=== PATIENT | female | born 1950 | race Caucasian/White ===

== ENCOUNTER 2018-11-29 06:30 | Inpatient (IN) ==
[~2018-11-29 06:30] MED LIST: ceFAZolin 1,000 MG, Sodium Chloride IRRigation 1,000 ML IR ONE
[2018-11-29] MEDS ORDERED: Albuterol 2.5 MG/3 ML NEBULIZER IH PRN (07:09)
[2018-11-29] MEDS ORDERED: CeFAZolin Syr 2,000MG/20 ML 2,000 MG/20 ML SYRINGE IVPB ONE (07:09)
[2018-11-29] MEDS ORDERED: Ringers Solution, Lactated 1,000 ML IVC SCH (07:15)
[2018-11-29] MEDS ORDERED: *HR* Rocuronium Bromide 50 MG/5 ML VIAL ONE (07:22)
[2018-11-29] MEDS ORDERED: Lidocaine -MPF 2% 2 ML VIAL ONE ×2 (07:22→08:12)
[2018-11-29] MEDS ORDERED: *HR* Propofol 200 MG/20 ML VIAL IVP ONE (07:23)
[2018-11-29] MEDS ORDERED: *HR* FentaNYL (PF) 100 MCG/2 ML VIAL ONE (07:25)
[2018-11-29] MEDS ORDERED: *HR* Midazolam HCl 2 MG/2 ML VIAL ONE (07:25)
[2018-11-29] MEDS ORDERED: *HR* Phenylephrine 10 MG/ML VIAL ONE (07:27)
[2018-11-29] MEDS ORDERED: *HR* Labetalol 20 MG/4 ML SYRINGE IVP PRN ×2 (07:29→13:02)
[2018-11-29] MEDS ORDERED: Morphine Sulfate 2 MG/ML SYRINGE IVP PRN (07:29)
[2018-11-29] MEDS ORDERED: *HR* OxyCODONE Immed Rel 5 MG TABLET PO PRN (07:29)
[2018-11-29] MEDS ORDERED: *HR* Midazolam HCl 2 MG/2 ML VIAL IVP PRN (07:29)
[2018-11-29] MEDS ORDERED: traMADol 50 MG TABLET PO PRN ×2 (07:29→13:02)
[2018-11-29] MEDS ORDERED: *HR* Remifentanil 2 MG VIAL IVP ONE (07:29)
[2018-11-29] MEDS ORDERED: Ondansetron 4 MG/2 ML VIAL IVP ONE (07:29)
[2018-11-29] MEDS ORDERED: Heparin 1,000 UNITS/500 mL 0 ML ONE (07:32)
[2018-11-29] MEDS ORDERED: Protamine Sulfate 50 MG/5 ML VIAL IVP ONE (07:51)
[2018-11-29] MEDS ORDERED: Heparin 1,000 UNITS/500 mL 1,000 ML ONE (07:51)
[2018-11-29] MEDS ORDERED: *HR* PHENYLEPHRINE 1,000 MCG/10 ML SYRINGE IVP ONE (08:32)
[2018-11-29] MEDS ORDERED: *HR* Heparin 5,000 UNIT/ML VIAL ONE (09:01)
[2018-11-29] MEDS ORDERED: NiCARdipine 2.5 MG/10 ML Syringe IVPB ONE (10:29)
[2018-11-29] MEDS ORDERED: Naloxone 0.4 MG/ML INJ IVP PRN (13:02)
[2018-11-29] MEDS ORDERED: 0.9 % Sodium Chloride 500 ML IV ONE (13:22)
[2018-11-29] MEDS ORDERED: Ondansetron 4 MG/2 ML VIAL ONE (13:41)
[2018-11-29] MEDS ORDERED: Dexamethasone 4 MG/ML VIAL ONE (13:41)
[2018-11-29] MEDS: 0.9 % Sodium Chloride 1,000 ML IVC SCH (13:54)
[2018-11-29] MEDS: Gabapentin 300 MG CAPSULE PO SCH ×2 (15:23→20:48)
[2018-11-29] MEDS: *HR* Metformin 500 MG TABLET PO SCH ×2 (15:23→20:48)
[2018-11-29] MEDS: Spironolactone 25 MG TABLET PO SCH (20:37)
[2018-11-29] MEDS: Ibuprofen 800 MG TABLET PO SCH (20:48)
[2018-11-29] MEDS: Ondansetron 4 MG/2 ML VIAL IVP PRN (23:31)
[2018-11-30] MEDS: 0.9 % Sodium Chloride 1,000 ML IVC SCH (03:43)
[2018-11-30 04:13] LABS: Basophils % 0.2 %; Eosinophils % 0.1 %; Hematocrit 31.9 % (35.3-44.9); Hemoglobin 10.6 g/dL (11.5-15.4); Immature Granulocytes % 0.4 % (0-4); Lymphocytes # 2.5 K/mcL (0.6-4.6); Lymphocytes % 21.8 %; Mean Corpuscular HGB Conc 33.2 g/dL (31.6-35.5); Mean Corpuscular Hemoglobin 30.2 pg (28.0-33.3); Mean Corpuscular Volume 90.9 fL (83.0-100.0); Mean Platelet Volume 10.3 fL (9.4-12.4); Monocytes # 0.7 K/mcL (0.0-1.3); Monocytes % 5.8 %; Neutrophils # 8.2 K/mcL (1.6-8.9); Platelet Count 246 K/mcL (140-400); Red Blood Count 3.51 M/mcL (3.82-4.97); Red Cell Distribution Width 12.5 % (11.5-14.5); Segmented Neutrophils % 71.7 %; White Blood Count 11.4 K/mcL (4.3-11.1)
[2018-11-30 04:31] LABS: BUN/Creatinine Ratio 18 (6-26); Blood Urea Nitrogen 19 mg/dL (8-23); Calcium 8.9 mg/dL (8.6-10.3); Carbon Dioxide 23 mEq/L (23-29); Chloride 106 mEq/L (98-107); Glucose 118 mg/dL (70-105); Osmolality,Calculated 291 (280-300); Potassium 3.7 mEq/L (3.5-5.1); Sodium 139 mEq/L (136-145); eGFR For African Americans > 60 (> 60); eGFR For Non-African Americans 50 (> 60)
[2018-11-30] MEDS: Ondansetron 4 MG/2 ML VIAL IVP PRN (07:56)
[2018-11-30] MEDS: *HR* Metformin 500 MG TABLET PO SCH (07:56)
[2018-11-30] MEDS: Spironolactone 25 MG TABLET PO SCH (07:57)
[2018-11-30] MEDS: Ibuprofen 800 MG TABLET PO SCH (07:57)
[2018-11-30] MEDS: Gabapentin 300 MG CAPSULE PO SCH (07:57)
[2018-11-30] MEDS ORDERED: Aspirin Enteric Coated 81 MG Tablet PO SCH (09:00)
[2018-11-30] MEDS ORDERED: Losartan/HCTZ 50-12.5 TABLET PO SCH (09:00)
[2018-11-30 11:32] VITALS: BP 115/59
[2018-11-30] MEDS ORDERED: FLU Vac QV 19-20 (6Month+)/PF 0.5 ML SYRINGE IM ONE (11:38)
== END 2018-11-30 14:03 | disposition home or self-care (01) | DRG 39 ==
LOC: SAMDAY 06:30 → 2NNU 13:07
PROVIDERS: ADMIT Surgery Vascular Surgery; ATTEND Surgery Vascular Surgery

== ENCOUNTER 2018-12-27 06:13 | Inpatient (IN) ==
[~2018-12-27 06:13] MED LIST changes: +ONABOTULINUMTOXINA 200 UNIT INTRADETRU ONE; +SODIUM CHLORIDE 0.9% INTRADETRU ONE
[2018-12-27] MEDS ORDERED: CeFAZolin Syr 2,000MG/20 ML 2,000 MG/20 ML SYRINGE IVPB ONE (06:34)
[2018-12-27] MEDS ORDERED: Ringers Solution, Lactated 1,000 ML IVC SCH (06:45)
[2018-12-27] MEDS ORDERED: *HR* Phenylephrine 10 MG/ML VIAL ONE (06:51)
[2018-12-27] MEDS ORDERED: *HR* Remifentanil 2 MG VIAL IVP ONE (06:51)
[2018-12-27] MEDS ORDERED: Lidocaine -MPF 2% 2 ML VIAL ONE ×2 (06:51)
[2018-12-27] MEDS ORDERED: *HR* Rocuronium Bromide 50 MG/5 ML VIAL ONE (06:51)
[2018-12-27] MEDS ORDERED: *HR* Heparin 5,000 UNIT/ML VIAL ONE (06:51)
[2018-12-27] MEDS ORDERED: *HR* Succinylcholine 200 MG/10 ML VIAL IVP ONE (06:51)
[2018-12-27] MEDS ORDERED: Ondansetron 4 MG/2 ML VIAL ONE (06:51)
[2018-12-27] MEDS ORDERED: Heparin 1,000 UNITS/500 mL 0 ML ONE (06:51)
[2018-12-27] MEDS ORDERED: *HR* FentaNYL (PF) 100 MCG/2 ML VIAL ONE (06:51)
[2018-12-27] MEDS ORDERED: *HR* Propofol 200 MG/20 ML VIAL IVP ONE (06:51)
[2018-12-27] MEDS ORDERED: Dexamethasone 4 MG/ML VIAL ONE (06:51)
[2018-12-27] MEDS ORDERED: NiCARdipine 2.5 MG/10 ML Syringe IVPB ONE ×2 (06:52→07:15)
[2018-12-27] MEDS ORDERED: ONABOTULINUMTOXINA 200 UNIT INTRADETRU ONE (07:00)
[2018-12-27] MEDS ORDERED: SODIUM CHLORIDE 0.9% INTRADETRU ONE (07:00)
[2018-12-27] MEDS ORDERED: Lidocaine 1% 20 ML MDV ONE (07:12)
[2018-12-27] MEDS ORDERED: Heparin 1,000 UNITS/500 mL 1,000 ML ONE (07:12)
[2018-12-27] MEDS ORDERED: Lidocaine -MPF 4% 5 ML AMPUL ONE (07:12)
[2018-12-27] MEDS ORDERED: Protamine Sulfate 50 MG/5 ML VIAL IVP ONE (07:12)
[2018-12-27] MEDS ORDERED: Famotidine 20 MG/2 ML VIAL IVP ONE (07:16)
[2018-12-27] MEDS ORDERED: Acetaminophen IV 1,000 MG/100 ML INFUS..BTL IVPB ONE (07:16)
[2018-12-27] MEDS ORDERED: Pregabalin 75 MG CAPSULE PO ONE (07:16)
[2018-12-27] MEDS ORDERED: *HR* Midazolam HCl 2 MG/2 ML VIAL ONE (07:45)
[2018-12-27] MEDS ORDERED: *HR* Atropine Sulfate 8 MG/20 ML VIAL IVP ONE (08:24)
[2018-12-27] MEDS ORDERED: EPHEDrine 50 MG/ML VIAL ONE (08:25)
[2018-12-27] MEDS ORDERED: *HR* Labetalol 20 MG/4 ML SYRINGE IVP ONE (09:32)
[2018-12-27] MEDS ORDERED: *HR* Labetalol 20 MG/4 ML SYRINGE IVP PRN (11:49)
[2018-12-27] MEDS ORDERED: *HR* HYDROcodone/Acet 5/325 mg TABLET PO PRN (11:49)
[2018-12-27] MEDS ORDERED: Acetaminophen 325 MG TABLET PO PRN (11:49)
[2018-12-27] MEDS ORDERED: Naloxone 0.4 MG/ML INJ IVP PRN (11:49)
[2018-12-27] MEDS: Gabapentin 300 MG CAPSULE PO SCH ×2 (14:42→20:27)
[2018-12-27] MEDS: *HR* Metformin 500 MG TABLET PO SCH ×2 (14:45→20:27)
[2018-12-27] MEDS: Spironolactone 25 MG TABLET PO SCH (20:27)
[2018-12-28 01:59] LABS: Basophils % 0.2 %; Hematocrit 30.5 % (35.3-44.9); Immature Granulocytes % 0.2 % (0-4); Lymphocytes # 1.9 K/mcL (0.6-4.6); Mean Corpuscular HGB Conc 32.8 g/dL (31.6-35.5); Mean Corpuscular Volume 91.6 fL (83.0-100.0); Mean Platelet Volume 10.1 fL (9.4-12.4); Monocytes # 0.5 K/mcL (0.0-1.3); Monocytes % 5.3 %; Neutrophils # 7.2 K/mcL (1.6-8.9); Platelet Count 197 K/mcL (140-400); Red Blood Count 3.33 M/mcL (3.82-4.97); Segmented Neutrophils % 74.3 %; White Blood Count 9.7 K/mcL (4.3-11.1)
[2018-12-28 02:17] LABS: Calcium 8.7 mg/dL (8.6-10.3); Potassium 3.9 mEq/L (3.5-5.1)
[2018-12-28 07:14] VITALS: BP 103/59
[2018-12-28] MEDS: *HR* Metformin 500 MG TABLET PO SCH (07:40)
[2018-12-28] MEDS: Spironolactone 25 MG TABLET PO SCH (07:40)
[2018-12-28] MEDS: Gabapentin 300 MG CAPSULE PO SCH (07:40)
[2018-12-28] MEDS ORDERED: Aspirin Enteric Coated 81 MG Tablet PO SCH (09:00)
[2018-12-28] MEDS ORDERED: Losartan/HCTZ 50-12.5 TABLET PO SCH (09:00)
== END 2018-12-28 10:44 | disposition home or self-care (01) | DRG 39 ==
LOC: SAMDAY 06:13 → 2NNU 12:02
PROVIDERS: ADMIT Surgery Vascular Surgery; ATTEND Surgery Vascular Surgery

== ENCOUNTER 2019-12-05 06:23 | Inpatient (IN) ==
[2019-12-05] MEDS ORDERED: CeFAZolin Syr 2,000MG/20 ML 2,000 MG/20 ML SYRINGE IVPB ONE (06:59)
[2019-12-05] MEDS ORDERED: Acetaminophen IV 1,000 MG/100 ML INFUS..BTL IVPB ONE (07:00)
[2019-12-05] MEDS ORDERED: Ringers Solution, Lactated 1,000 ML IVC SCH ×2 (07:00→14:19)
[2019-12-05] MEDS ORDERED: *HR* Midazolam HCl 2 MG/2 ML VIAL ONE (07:07)
[2019-12-05] MEDS ORDERED: Dexamethasone 4 MG/ML VIAL ONE (07:07)
[2019-12-05] MEDS ORDERED: *HR* Remifentanil 1 MG VIAL IVP ONE ×2 (07:07→10:59)
[2019-12-05] MEDS ORDERED: Ondansetron 4 MG/2 ML VIAL ONE (07:07)
[2019-12-05] MEDS ORDERED: *HR* Propofol 200 MG/20 ML VIAL IVP ONE (07:07)
[2019-12-05] MEDS ORDERED: Lidocaine -MPF 2% 2 ML VIAL ONE (07:07)
[2019-12-05] MEDS ORDERED: *HR* FentaNYL (PF) 100 MCG/2 ML VIAL ONE (07:07)
[2019-12-05] MEDS ORDERED: *HR* Rocuronium Bromide 50 MG/5 ML VIAL ONE (07:08)
[2019-12-05] MEDS ORDERED: *HR* Phenylephrine 10 MG/ML VIAL ONE ×2 (07:08→11:23)
[2019-12-05] MEDS ORDERED: *HR* Succinylcholine 200 MG/10 ML VIAL IVP ONE (07:08)
[2019-12-05] MEDS ORDERED: Lidocaine -MPF 4% 5 ML AMPUL ONE (07:08)
[2019-12-05] MEDS ORDERED: Scopolamine Patch 1.5 MG PATCH.TD72 TD ONE (07:19)
[2019-12-05] MEDS ORDERED: *HR* Promethazine 25 MG/ML VIAL IVP PRN (07:19)
[2019-12-05] MEDS ORDERED: *HR* Meperidine 25 MG/ML SYRINGE IVP PRN (07:19)
[2019-12-05] MEDS ORDERED: Ondansetron 4 MG/2 ML VIAL IVP PRN ×2 (07:19→14:19)
[2019-12-05] MEDS ORDERED: *HR* HYDROmorphone PF 0.5 MG/0.5 ML SYRINGE IVP PRN (07:19)
[2019-12-05] MEDS ORDERED: Bacitracin 50,000 UNIT, Polymyxin B Sulfate 500,000 UNIT, Sodium Chloride IRRigation 1,... IR ONE (07:45)
[2019-12-05] MEDS ORDERED: *HR* HYDROMORPHONE 2 MG/ML VIAL ONE (08:39)
[2019-12-05] MEDS ORDERED: *HR* PHENYLEPHRINE 1,000 MCG/10 ML SYRINGE IVP ONE ×8 (09:30→12:05)
[2019-12-05] MEDS ORDERED: Albumin Human 5% 25.0 GM/500 ML IV.SOLN ONE (12:16)
[2019-12-05 12:44] LABS: Hemoglobin 8.5 g/dL (11.5-15.4)
[2019-12-05] MEDS ORDERED: Naloxone 0.4 MG/ML INJ IVP PRN (14:19)
[2019-12-05] MEDS ORDERED: 0.9 % Sodium Chloride 500 ML IV ONE (14:57)
[2019-12-05] MEDS: *HR* OxyCODONE Immed Rel 5 MG TABLET PO PRN ×2 (15:46→22:28)
[2019-12-05] MEDS ORDERED: 0.9 % Sodium Chloride 1,000 ML IV ONE (16:57)
[2019-12-05] MEDS: CeFAZolin 2 GM/120 ML BAG IVPB SCH (17:05)
[2019-12-05] MEDS: *HR* Metformin 500 MG TABLET PO SCH (17:05)
[2019-12-05 17:34] LABS: Basophils % 0.2 %; Hematocrit 22.8 % (35.3-44.9); Hemoglobin 7.2 g/dL (11.5-15.4); Immature Granulocytes % 0.8 % (0-4); Lymphocytes % 7.6 %; Mean Corpuscular HGB Conc 31.6 g/dL (31.6-35.5); Mean Corpuscular Hemoglobin 30.5 pg (28.0-33.3); Mean Corpuscular Volume 96.6 fL (83.0-100.0); Mean Platelet Volume 10.3 fL (9.4-12.4); Monocytes # 0.5 K/mcL (0.0-1.3); Monocytes % 3.6 %; Neutrophils # 11.5 K/mcL (1.6-8.9); Platelet Count 181 K/mcL (140-400); Red Blood Count 2.36 M/mcL (3.82-4.97); Red Cell Distribution Width 13.1 % (11.5-14.5); Segmented Neutrophils % 87.8 %
[2019-12-05] MEDS ORDERED: 0.9 % Sodium Chloride 250 ML ONE ×2 (17:34→22:04)
[2019-12-05 17:40] LABS: White Blood Count 13.1 K/mcL (4.3-11.1)
[2019-12-05] MEDS: Spironolactone 25 MG TABLET PO SCH (19:41)
[2019-12-05] MEDS: 0.9 % Sodium Chloride 1,000 ML IVC SCH (20:37)
[2019-12-05] MEDS: *HR* HYDROcodone/Acet 5/325 mg TABLET PO PRN (20:38)
[2019-12-06] MEDS ORDERED: CeFAZolin 2 GM/120 ML BAG IVPB SCH ×2
[2019-12-06] MEDS: Acetaminophen 325 MG TABLET PO PRN ×2 (00:16→08:46)
[2019-12-06 01:19] LABS: Basophils % 0.1 %; Hematocrit 29.5 % (35.3-44.9); Immature Granulocytes % 0.5 % (0-4); Lymphocytes # 1.2 K/mcL (0.6-4.6); Lymphocytes % 11.1 %; Mean Corpuscular HGB Conc 32.9 g/dL (31.6-35.5); Mean Corpuscular Volume 91.3 fL (83.0-100.0); Mean Platelet Volume 10.1 fL (9.4-12.4); Monocytes # 0.7 K/mcL (0.0-1.3); Monocytes % 6.7 %; Neutrophils # 8.7 K/mcL (1.6-8.9); Platelet Count 146 K/mcL (140-400); Red Blood Count 3.23 M/mcL (3.82-4.97); Red Cell Distribution Width 13.6 % (11.5-14.5); Segmented Neutrophils % 81.6 %; White Blood Count 10.7 K/mcL (4.3-11.1)
[2019-12-06 01:20] LABS: Hemoglobin 9.7 g/dL (11.5-15.4)
[2019-12-06 01:38] LABS: Calcium 8.6 mg/dL (8.6-10.3); Potassium 4.5 mEq/L (3.5-5.1)
[2019-12-06] MEDS: 0.9 % Sodium Chloride 1,000 ML IVC SCH ×2 (02:07→11:22)
[2019-12-06] MEDS: *HR* Metformin 500 MG TABLET PO SCH (08:46)
[2019-12-06] MEDS: *HR* OxyCODONE Immed Rel 5 MG TABLET PO PRN ×3 (08:47→22:01)
[2019-12-06] MEDS: Spironolactone 25 MG TABLET PO SCH (08:47)
[2019-12-06] MEDS ORDERED: Cholecalciferol (D-3) 1,000 UNIT (25MCG) TABLET PO SCH (09:00)
[2019-12-06] MEDS ORDERED: NON-FORMULARY MEDICATION 1 EACH EACH (Garlic 1,000 MG) PO SCH (09:00)
[2019-12-06] MEDS ORDERED: Aspirin Enteric Coated 81 MG Tablet PO SCH (09:00)
[2019-12-06] MEDS: CeFAZolin 2 GM/120 ML BAG IVPB SCH (11:22)
[2019-12-06] MEDS: *HR* HYDROcodone/Acet 5/325 mg TABLET PO PRN (13:42)
[2019-12-06] MEDS ORDERED: Naloxone 0.4 MG/ML INJ IVP PRN (13:42)
[2019-12-06] MEDS ORDERED: Dextrose Gel 15 GM/37.5 ML TUBE PO PRN ×2 (13:42)
[2019-12-06] MEDS ORDERED: D5% in Water 1,000 ML IVC PRN (13:42)
[2019-12-06] MEDS ORDERED: Acetaminophen 325 MG TABLET PO PRN (13:42)
[2019-12-06] MEDS ORDERED: Ondansetron 4 MG/2 ML VIAL IVP PRN (13:42)
[2019-12-06] MEDS ORDERED: *HR* Dextrose 50 % in Water (Vial) 50 ML VIAL IVP PRN (13:42)
[2019-12-06 16:28] LABS: Hematocrit 25.5 % (35.3-44.9); Hemoglobin 8.7 g/dL (11.5-15.4)
[2019-12-06] MEDS: Insulin LISPRO 300 UNITS/3 ML VIAL SQ SCH ×2 (17:34→21:11)
[2019-12-07 02:36] LABS: Basophils % 0.2 %; Hematocrit 25.6 % (35.3-44.9); Hemoglobin 8.2 g/dL (11.5-15.4); Immature Granulocytes % 0.6 % (0-4); Lymphocytes # 1.9 K/mcL (0.6-4.6); Lymphocytes % 19.2 %; Mean Corpuscular Volume 90.5 fL (83.0-100.0); Mean Platelet Volume 10.4 fL (9.4-12.4); Monocytes # 0.7 K/mcL (0.0-1.3); Monocytes % 6.9 %; Neutrophils # 7.2 K/mcL (1.6-8.9); Platelet Count 143 K/mcL (140-400); Red Blood Count 2.83 M/mcL (3.82-4.97); Red Cell Distribution Width 14.2 % (11.5-14.5); Segmented Neutrophils % 73.1 %; White Blood Count 9.8 K/mcL (4.3-11.1)
[2019-12-07 02:37] LABS: Hematocrit 24.8 % (35.3-44.9); Hemoglobin 8.1 g/dL (11.5-15.4); Mean Corpuscular HGB Conc 32.7 g/dL (31.6-35.5); Mean Corpuscular Hemoglobin 29.6 pg (28.0-33.3); Mean Corpuscular Volume 90.5 fL (83.0-100.0); Mean Platelet Volume 10.4 fL (9.4-12.4); Platelet Count 139 K/mcL (140-400); Red Blood Count 2.74 M/mcL (3.82-4.97); Red Cell Distribution Width 14.3 % (11.5-14.5); White Blood Count 9.8 K/mcL (4.3-11.1)
[2019-12-07 02:58] LABS: Alanine Aminotransferase 15 Units/L (7-52); Albumin/Globulin Ratio 1.7 (1.1-2.2); Alkaline Phosphatase 26 Units/L (34-104); Aspartate Amino Transferase 40 Units/L (13-39); BUN/Creatinine Ratio 12 (6-26); Bilirubin,Total 0.5 mg/dL (0.3-1.0); Blood Urea Nitrogen 12 mg/dL (8-23); Calcium 8.4 mg/dL (8.6-10.3); Carbon Dioxide 27 mEq/L (23-29); Chloride 107 mEq/L (98-107); Globulin 1.8 g/dL (2.4-3.5); Glucose 127 mg/dL (70-105); Osmolality,Calculated 289 (280-300); Potassium 3.7 mEq/L (3.5-5.1); Sodium 139 mEq/L (136-145); Total Protein 4.8 g/dL (6.4-8.9); eGFR For African Americans > 60 (> 60); eGFR For Non-African Americans 56 (> 60)
[2019-12-07 02:59] LABS: BUN/Creatinine Ratio 13 (6-26); Blood Urea Nitrogen 13 mg/dL (8-23); Calcium 8.6 mg/dL (8.6-10.3); Carbon Dioxide 28 mEq/L (23-29); Chloride 107 mEq/L (98-107); Glucose 126 mg/dL (70-105); Osmolality,Calculated 290 (280-300); Potassium 3.7 mEq/L (3.5-5.1); Sodium 139 mEq/L (136-145); eGFR For African Americans > 60 (> 60); eGFR For Non-African Americans 56 (> 60)
[2019-12-07] MEDS: *HR* OxyCODONE Immed Rel 5 MG TABLET PO PRN ×3 (04:24→16:40)
[2019-12-07] MEDS: Cholecalciferol (D-3) 1,000 UNIT (25MCG) TABLET PO SCH (07:34)
[2019-12-07] MEDS: *HR* HYDROcodone/Acet 5/325 mg TABLET PO PRN ×2 (07:34→22:16)
[2019-12-07] MEDS: Aspirin Enteric Coated 81 MG Tablet PO SCH (07:34)
[2019-12-07] MEDS: Insulin LISPRO 300 UNITS/3 ML VIAL SQ SCH ×4 (07:35→20:06)
[2019-12-07] MEDS: tiZANidine 4 MG TABLET PO PRN ×2 (09:01→17:38)
[2019-12-07] MEDS ORDERED: 0.9 % Sodium Chloride 250 ML ONE (10:57)
[2019-12-07] MEDS: 0.9 % Sodium Chloride 1,000 ML IVC SCH (14:34)
[2019-12-07 16:05] LABS: Hematocrit 30.9 % (35.3-44.9)
[2019-12-07 16:06] LABS: Hemoglobin 10.4 g/dL (11.5-15.4)
[2019-12-07] MEDS: Spironolactone 25 MG TABLET PO SCH (20:05)
[2019-12-07 21:53] LABS: Hemoglobin 8.8 g/dL (11.5-15.4)
[2019-12-08] MEDS: 0.9 % Sodium Chloride 1,000 ML IVC SCH (00:17)
[2019-12-08 01:46] LABS: Basophils % 0.4 %; Eosinophils % 0.1 %; Hematocrit 27.8 % (35.3-44.9); Hemoglobin 8.9 g/dL (11.5-15.4); Immature Granulocytes % 0.4 % (0-4); Lymphocytes # 2.1 K/mcL (0.6-4.6); Lymphocytes % 22.5 %; Mean Corpuscular Hemoglobin 29.4 pg (28.0-33.3); Mean Corpuscular Volume 91.7 fL (83.0-100.0); Mean Platelet Volume 10.7 fL (9.4-12.4); Monocytes # 0.6 K/mcL (0.0-1.3); Monocytes % 6.4 %; Neutrophils # 6.6 K/mcL (1.6-8.9); Platelet Count 130 K/mcL (140-400); Red Blood Count 3.03 M/mcL (3.82-4.97); Red Cell Distribution Width 13.9 % (11.5-14.5); Segmented Neutrophils % 70.2 %; White Blood Count 9.4 K/mcL (4.3-11.1)
[2019-12-08 02:08] LABS: BUN/Creatinine Ratio 14 (6-26); Blood Urea Nitrogen 13 mg/dL (8-23); Calcium 8.4 mg/dL (8.6-10.3); Carbon Dioxide 25 mEq/L (23-29); Chloride 105 mEq/L (98-107); Glucose 126 mg/dL (70-105); Osmolality,Calculated 288 (280-300); Potassium 3.6 mEq/L (3.5-5.1); Sodium 138 mEq/L (136-145); eGFR For African Americans > 60 (> 60); eGFR For Non-African Americans > 60 (> 60)
[2019-12-08] MEDS: *HR* OxyCODONE Immed Rel 5 MG TABLET PO PRN ×3 (03:21→16:51)
[2019-12-08] MEDS: Spironolactone 25 MG TABLET PO SCH (08:06)
[2019-12-08] MEDS: Aspirin Enteric Coated 81 MG Tablet PO SCH (08:06)
[2019-12-08] MEDS: Cholecalciferol (D-3) 1,000 UNIT (25MCG) TABLET PO SCH (08:06)
[2019-12-08] MEDS: Insulin LISPRO 300 UNITS/3 ML VIAL SQ SCH ×3 (08:07→16:51)
[2019-12-08 09:56] LABS: Hematocrit 31.7 % (35.3-44.9); Hemoglobin 10.2 g/dL (11.5-15.4)
[2019-12-08] MEDS: *HR* HYDROcodone/Acet 5/325 mg TABLET PO PRN (11:47)
[2019-12-08 16:34] VITALS: BP 150/75
== END 2019-12-08 18:44 | disposition home health service (06) | DRG 454 ==
LOC: SAMDAY 06:23 → 3NENU 14:02 → ICNU 21:18 → 3NENU 12-06 16:57
PROVIDERS: ADMIT Orthopaedic Surgery Orthopaedic Surgery of the Spine; ATTEND Orthopaedic Surgery Orthopaedic Surgery of the Spine